=== PATIENT | female | born 1990 | race Two or more races ===

== ENCOUNTER 2024-07-22 12:39 | Emergency (ER) | payer OTHER ==
[~2024-07-22] VITALS: Ht 165.1 cm; Wt 113.4 kg
[2024-07-22] MEDS ORDERED: DIATRIZOATE MEGLUMINE, SODIUM 30 ML BOTTLE ONE (13:49)
[2024-07-22] MEDS ORDERED: KETOROLAC TROMETHAMINE 60 MG VIAL IM ONE ×3 (14:00→18:15)
[2024-07-22] MEDS ORDERED: KETOROLAC TROMETHAMINE 60 MG VIAL IM STA (14:11)
[2024-07-22 14:16] LABS: HEMATOCRIT 37.7 % (36.0-45.00); HEMOGLOBIN 12.7 g/dL (12.0-15.00); MEAN CELL VOLUME 80.3 fL (80.00-100.00); MEAN CORPUSCULAR HGB CONC 33.6 g/dl (32.0-36.0); PLATELET COUNT 268 K/uL (150-450); RED BLOOD COUNT 4.69 M/uL (4.00-6.00); RED CELL DISTRIBUTION WIDTH 14.4 % (11.5-14.5)
[2024-07-22 14:28] LABS: URINE APPEARANCE Clear; URINE BILIRRUBIN Negative (NEGATIVE); URINE BLOOD Large; URINE COLOR Yellow; URINE GLUCOSE Negative (NEGATIVE); URINE KETONE Negative (NEGATIVE); URINE LEUKOCYTE Negative; URINE NITRATE Negative; URINE PROTEIN Negative (NEGATIVE); URINE UROBILINOGEN 0.2 E.U./dl
[2024-07-22 14:32] LABS: URINE BACTERIA 51.4 uL (0.0-1933); URINE EPITHELIAL CELLS 39.7 uL (0.0-38.8); URINE RBC 65.9 uL (0.0-20.8); URINE WBC 9.8 uL (0.0-23.2)
[2024-07-22 14:35] LABS: CALCIUM 9.5 mg/dL (8.5-10.1); CREATININE SERUM 0.78 mg/dL (0.55-1.02); GFR 84.04; POTASSIUM 3.96 mEq/L (3.5-5.1)
[2024-07-22 14:36] LABS: URINE CAST 0.29 uL (0.0-1.40)
[2024-07-22] MEDS ORDERED: CEPHALEXIN500 MG PO (18:10)
[2024-07-22] MEDS ORDERED: ONDANSETRON ODT8 MG PO (18:10)
[2024-07-22] MEDS ORDERED: KETO10TA2 PO (18:10)
[2024-07-22] MEDS ORDERED: TAMS0.4C PO (18:10)
[2024-07-22] MEDS ORDERED: TAMSULOSIN HCL 0.4 MG CAP PO ONE ×2 (18:13→18:15)
== END 2024-07-22 18:22 | disposition home or self-care (01) ==
LOC: ER 12:40
PROVIDERS: Emergency Medicine
DX: N20.1 Calculus of ureter (principal); R10.9 Unspecified abdominal pain; Z88.2 Allergy status to sulfonamides; Z91.040 Latex allergy status
CPT/HCPCS: 36415; 74177; 96372; 99284; J1885 ×2; Q9965